=== PATIENT | female | born 1965 | race Caucasian/White ===

== ENCOUNTER 2017-10-25 11:45 | Inpatient (IN) | payer OTHER ==
[2017-11-01] MEDS ORDERED: cefOXitin SODIUM 2 GM in NS 100 ML IV ONE (06:51)
[2017-11-01] MEDS ORDERED: LR 1,000 ML IV ONE (07:34)
[2017-11-01] MEDS ORDERED: BUPIVACAINE/EPI 0.5% 30 ML SDV ONE (07:52)
[2017-11-01] MEDS ORDERED: MIDAZOLAM 2 MG/2 ML VIAL IVP ONE (07:59)
--- NOTE | 2017-11-01 07:59 | PDANEPAE ---
ANE Past Medical History - Cardiovascular History Hx Hypertension: Yes Hx Arrhythmias: No Hx Chest Pain: No Hx Coronary Artery / Peripheral Vascular Disease: No Hx CHF / Valvular Disease: No Hx Palpitations: No - Pulmonary History Hx COPD: No Hx Asthma/Reactive Airway Disease: Yes Hx Recent Upper Respiratory Infection: No Hx Oxygen in Use at Home: No Hx Sleep Apnea: No Sleep Apnea Screening Result - Last Documented: Positive Pulmonary History Comment: EXERCISE INDUCED ASTHMA - Neurologic History Hx Cerebrovascular Accident: No Hx Seizures: No Hx Dementia: No - Endocrine History Hx Diabetes: Yes Hypothyroid: No Hyperthyroid: No Obesity: yes, severe Endocrine History Comment: IDDDM SINCE 2004 - Renal History Hx Renal Disorders: No - Liver History Hx Hepatic Disorders: No - Neurological & Psychiatric Hx Hx Neurological and Psychiatric Disorders: No - Cancer History Hx Cancer: Yes Cancer History Comment: NEW DX LT KIDNEY 08/2017 - Congenital Disorder History Hx Congenital Disorders: No - GI History GERD: no Hx Gastrointestinal Disorders: Yes Gastrointestinal History Comment: DIVERTICULOSIS - Other Health History Other Health History: LT EUSTATCHIAN TUBE PLUGGING RELATED TO ALLERGIES - Chronic Pain History Chronic Pain: No - Surgical History Prior Surgeries: PARTIAL HYSTERECTOMY. LUMBAR FUSION. LT CARPAL TUNNEL. LT THUMB ARTHROPLASTY. REMVL BONE SPUR RT FOOT. LT WRIST BONE GRAFT ANE Review of Systems Review of Systems: - Exercise capacity METS (RN): 4 METS ANE Patient History - Allergies Allergies/Adverse Reactions: Sulfa (Sulfonamide Antibiotics) Allergy (Verified 11/01/17 07:11) Rash - Home Medications Home Medications: Albuterol [Proventil Inhaler HFA (*)] 1 - 2 puffs IH DAILY PRN 09/26/17 [Last Taken 10/18/17] Aspirin [Aspirin 81mg (*)] 81 mg PO HS 09/26/17 [Last Taken 10/25/17] Benazepril HCl 40 mg PO DAILY 09/26/17 [Last Taken 11/01/17 05:00] Calcium Carbonate [Oyster Shell Calcium 500 mg (*)] 500 mg PO DAILY 09/26/17 [ Last Taken 10/25/17] Cholecalciferol Vit D3 [Vitamin D3 (*)] 1,000 units PO DAILY 09/26/17 [Last Taken 10/25/17] Dapagliflozin Propanediol [Farxiga] 5 mg PO DAILY 09/26/17 [Last Taken 10/31/17 09:00] Estradiol [Estradiol 1 MG (*)] 1 mg PO DAILY 09/26/17 [Last Taken 11/01/17 05:00 ] Fexofenadine HCl [Tameka Allergy] 60 mg PO DAILY 09/26/17 [Last Taken 10/31/17 09:00] Fluticasone Nasal [Flonase Nasal [place] (RX)] 2 sprays NASAL DAILY 09/26/17 [ Last Taken 11/01/17 05:00] Hydrochlorothiazide [HCTZ (*)] 12.5 mg PO DAILY 09/26/17 [Last Taken 10/31/17 09 :00] Insulin Detemir [Levemir] 80 unit SQ BID 09/26/17 [Last Taken 11/01/17 05:00 60 units] Nebivolol HCl [Bystolic] 30 mg PO DAILY 09/26/17 [Last Taken 11/01/17 05:00] [place]-3 Fatty Acids [Fish Oil 1000 mg (*)] 1,000 mg PO DAILY 09/26/17 [Last Taken 10/25/17] Pravastatin Sodium 40 mg PO HS 09/26/17 [Last Taken 10/31/17 22:00] Sodium Cl Nasal [[place] (*)] 1 spray NS DAILY 09/26/17 [Last Taken 05:00] glipiZIDE [Glucotrol] 10 mg PO BID 09/26/17 [Last Taken 10/31/17 19:00] metFORMIN HCL [Glucophage 1000 mg] 1,000 mg PO BIDMEAL 09/26/17 [Last Taken 19:00] sitaGLIPtin PHOSPHATE [Januvia 100 MG (*)] 100 mg PO DAILY 09/26/17 [Last Taken 10/31/17 09:00] - NPO status NPO Since - Liquids (Date): 10/31/17 NPO Since - Liquids (Time): 23:00 NPO Since - Solids (Date): 10/31/17 NPO Since - Solids (Time): 10:00 - Smoking Hx Smoking Status: Never smoked Marijuana use: No - Alcohol Use Alcohol Use: Rarely - Family Anes Hx Family Anes Hx: neg - N/A ANE Labs/Vital Signs - Vital Signs Blood Pressure: 139/77 Heart Rate: 61 Respiratory Rate: 16 O2 Sat (%): 91 Height: 160.02 cm Weight: 101.151 kg ANE Physical Exam - Airway Neck exam: FROM Mallampati Score: Class 2 Mouth exam: normal dental/mouth exam - Pulmonary Pulmonary: no respiratory distress, no rales or rhonchi, clear to auscultation - Cardiovascular Cardiovascular: regular rate and rhythym, no murmur, rub, or gallop - ASA Status ASA Status: III ANE Anesthesia Plan Anesthesia Plan: general endotracheal anesthesia Total IV Anesthesia: No
[2017-11-01] MEDS ORDERED: MIDAZOLAM 2 MG/2 ML VIAL ONE (08:04)
[2017-11-01] MEDS ORDERED: SCOPOLAMINE HYDROBROMIDE 1 MG/3 DAYS PATCH TD ONE (08:04)
--- NOTE | 2017-11-01 08:08 | PDHPUP ---
History & Physical Update H&P update statement: This history and physical update is based on an assessment of the patient which was completed after admission or registration (within 24 hours), but prior to the surgery/procedure. H&P update: no change in patient's condition since H&P completed
[2017-11-01] MEDS ORDERED: REMIFENTANIL HCL 1 MG VIAL ONE ×2 (08:20→10:29)
[2017-11-01] MEDS ORDERED: fentaNYL 100 MCG/2 ML INJ ONE ×3 (08:20→15:30)
[2017-11-01] MEDS ORDERED: LIDOCAINE 2% 5 ML SDV ONE (08:21)
[2017-11-01] MEDS ORDERED: PROPOFOL/EMULSION 500 MG/50 ML BOTTLE IV ONE ×2 (08:21→10:30)
[2017-11-01] MEDS ORDERED: PROPOFOL 200 MG/20 ML VIAL ONE (08:21)
[2017-11-01] MEDS ORDERED: ONDANSETRON 4 MG/2 ML VIAL ONE (08:22)
[2017-11-01] MEDS ORDERED: ROCURONIUM 50 MG/5 ML VIAL ONE ×3 (08:23→12:46)
[2017-11-01] MEDS ORDERED: DEXAMETHASONE 4 MG/ML VIAL ONE (08:23)
[2017-11-01] MEDS: SCOPOLAMINE HYDROBROMIDE 1 MG/3 DAYS PATCH TD SCH (09:15)
[2017-11-01] MEDS ORDERED: fentaNYL 100 MCG/2 ML INJ IVP PRN (09:39)
[2017-11-01] MEDS ORDERED: MEPERIDINE 25 MG/0.5 ML AMP IVP PRN (09:39)
[2017-11-01] MEDS ORDERED: LR 500 ML IV PRN (09:39)
[2017-11-01] MEDS ORDERED: ACETAMINOPHEN 500 MG TAB PO PRN (09:39)
[2017-11-01] MEDS ORDERED: oxyCODONE IR 5 MG TAB PO PRN (09:39)
[2017-11-01] MEDS ORDERED: HYDROmorphONE/DILAUDID 1 MG/ML INJ IVP PRN (09:39)
[2017-11-01] MEDS ORDERED: ALBUTEROL 3 ML DEYVIAL IH PRN (09:39)
[2017-11-01] MEDS ORDERED: NALOXONE HCL 0.4 MG/ML INJ IVP PRN ×2 (09:39→14:16)
[2017-11-01] MEDS ORDERED: PHENYLEPHRINE HCL 100 MCG/ML SYR IVP PRN (09:39)
[2017-11-01] MEDS ORDERED: ONDANSETRON 4 MG/2 ML VIAL IVP PRN ×2 (09:39→14:16)
[2017-11-01] MEDS ORDERED: HYDROCODONE/APAP 5/325 TAB PO PRN (09:39)
[2017-11-01] MEDS ORDERED: PROMETHAZINE HCL 25 MG/ML INJ IVP PRN ×2 (09:39→14:16)
[2017-11-01] MEDS ORDERED: THROMBIN(HUM PLAS)/FIBRINOG/CA 5 ML VIAL TP ONE ×3 (10:22→11:30)
[2017-11-01] MEDS ORDERED: PHENYLEPHRINE HCL 100 MCG/ML SYR ONE ×2 (12:05→12:54)
[2017-11-01] MEDS ORDERED: CALCIUM CHLORIDE 1 GM/10 ML INJ ONE (12:46)
[2017-11-01] MEDS ORDERED: NEOSTIGMINE METHYLSULFATE 10 MG/10 ML MDV ONE (13:29)
[2017-11-01] MEDS ORDERED: SUGAMMADEX SODIUM 200 MG/2 ML VIAL IVP ONE (13:30)
--- NOTE | 2017-11-01 14:14 | POSTOPPROG ---
Post Op Note Date of Operation: 11/02/17 Surgeon: Nic Winslow (# [id number]) Internet Specialist: Jessica Parham Anesthesia: GET(General Endotracheal) Pre-op Diagnosis: Left renal mass Post-op Diagnosis: Left renal mass Procedure: Robotically assisted left partial nephrectomy, converted to radical Findings: See op note Inf/Abcess present in the surg proc area at time of surgery?: No EBL: 500-1000 (1000 cc) Complications: None Specimen(s): 1. Lateral margin of tumor resection 2. Left renal tumor 3. Left kidney and proximal ureter
[2017-11-01] MEDS ORDERED: ALBUTEROL 60 PUFFS/8 GM MDI IH PRN (14:17)
[2017-11-01] MEDS ORDERED: D50W 25 GM/50 ML SYR IVP PRN (14:18)
--- NOTE | 2017-11-01 14:26 | POSTANESTH ---
Post Anesthetic Evaluation Cardiovascular Status: Normal, Stable Respiratory Status: Normal, Stable Level of Consciousness/Mental Status: Mildly Sleepy, Arousable Pain Control: Adequate, Prn Tx Ordered Nausea/Vomiting Control: Adequate, Prn Tx Ordered Complications Possibly Related to Anesthesia: None Noted
[2017-11-01] MEDS ORDERED: INSULIN REGULAR HUMAN 100 UNIT/ML UNIT SC ONE (14:30)
[2017-11-01] MEDS ORDERED: INSULIN REGULAR HUMAN 100 UNIT/ML UNIT ONE (14:39)
--- NOTE | 2017-11-01 16:45 | PDMN ---
Medical Necessity Medical necessity: MCG; S850 nephrectomy 3 days: [facility]PT only L radical Nephrectomy
[2017-11-01] MEDS: cefOXitin SODIUM 2 GM in NS 100 ML IV SCH ×2 (16:52→20:35)
[2017-11-01] MEDS: NS 1,000 ML IV SCH (16:56)
[2017-11-01] MEDS: HYDROmorphONE/DILAUDID 6 MG/30 ML PCA IV PRN (16:59)
[2017-11-01] MEDS ORDERED: INSULIN REGULAR HUMAN 100 UNIT/ML UNIT SC SCH (17:30)
[2017-11-01] MEDS ORDERED: KETOROLAC 15 MG/1 ML SDV IVP PRN (17:43)
[2017-11-01] MEDS ORDERED: KETOROLAC 30 MG/1 ML SDV IVP ONE (17:45)
[2017-11-02] MEDS: KETOROLAC 15 MG/1 ML SDV IVP SCH ×4 (04:16→20:53)
[2017-11-02] MEDS: cefOXitin SODIUM 2 GM in NS 100 ML IV SCH ×2 (04:18→14:58)
[2017-11-02] MEDS ORDERED: NEBIVOLOL HCL 5 MG TAB PO SCH (09:00)
[2017-11-02] MEDS ORDERED: HYDROCHLOROTHIAZIDE 12.5 MG CAP PO SCH (09:00)
[2017-11-02] MEDS ORDERED: BENAZEPRIL HCL 20 MG TAB PO SCH (09:00)
[2017-11-02] MEDS: CETIRIZINE 10 MG TAB PO SCH (09:16)
[2017-11-02] MEDS: SODIUM CL NASAL 45 ML BTL NS SCH (09:17)
[2017-11-02] MEDS: HYDROmorphONE/DILAUDID 6 MG/30 ML PCA IV PRN (09:46)
[2017-11-02] MEDS: FLUTICASONE NASAL 120 SPRAYS/16 GM MDI EACHNARE SCH (10:34)
--- NOTE | 2017-11-02 11:20 | GOP ---
[f rep st] OPERATIVE REPORT DATE OF OPERATION: 11/01/2017 SURGEON: Nic Winslow MD RACE RELATIONS ADVISER: Jessica Parham CFA. ANESTHESIA: General endotracheal. PREOPERATIVE DIAGNOSIS: Abnormal left renal mass. POSTOPERATIVE DIAGNOSIS: Abnormal left renal mass. PROCEDURE PERFORMED: Robotically-assisted laparoscopic left partial nephrectomy, converted to radica l nephrectomy. FINDINGS: Abnormal minimally exophytic left renal tumor located along the medial aspect of the mid p ole posteriorly, measuring approximately 3 cm in diameter. ESTIMATED BLOOD LOSS: Approximately 1000 cc. INDICATIONS: This woman was found to have an abnormal solid enhancing renal mass. She presents for operative management at this time. The indications for the procedures as well as potential risks and complications were discussed with the patient preoperatively. She appeared to understand, her quest ions were answered, and she wished to proceed. Written informed surgical consent was thereafter obta ined. DESCRIPTION OF PROCEDURE: The patient was brought to the operating room and administered general end otracheal anesthesia. Orogastric tube was also placed by Anesthesia and removed at the conclusion of the case. The patient was placed in a slight left flank up position with a triangular pad placed be hind her back. She was placed over the break of the table and the table was flexed approximately 15 degrees. The right leg was flexed at the knee, and the left leg was kept straight over it with rubens ws in between for padding purposes. The patient's right arm was kept abducted less than 90 degrees o n an arm board, while the left arm was kept straight along the patient's left side in a foam trough. All appropriate pressure points were padded. The patient was then secured to the table securely wit h several strips of tape running from head to toe. Because the patient has a large abdominal pannus, a pad was placed on the right side of the table to help support it when the patient was in the left flank up position. Once the patient had been secured to the table, the airplane was then tilted back and forth in maximum positions to ensure stability on the table and this was confirmed. The patient was then placed in slight Trendelenburg position and the table was tilted so the abdomen was as flat as possible for prepping and initial port placement. It should also be mentioned that prior to posi tioning, and after the patient was placed under anesthesia, a 16-[place] Connor catheter was placed to bag drainage without complication. The abdomen was sterilely prepped and draped in standard fashion utilizing Ioban. Access to the intraabdominal cavity was obtained with an extra long Veress needle just to the left of midline and about alf between the xiphoid process and the umbilicus. All the ports were shifted more laterally to the left than normal to account for the patient's large pannus. Once intraabdomin al access was obtained, the abdomen was insufflated 15 mmHg which was the intraabdominal pressure uti lized throughout the majority of the case. An extra long 12 mm laparoscopic port was placed at this location and intraabdominal access was confirmed with the laparoscopic camera. The remaining port si melody were marked out as follows: An 8 mm robotic port placed in the left upper quadrant just below e costal margin and nearly in the midclavicular line, another 8 mm robotic port placed in the lower a spect of the left lower quadrant, nearly in the same longitudinal line as the other 8 mm robotic port , and a 12 mm system port placed in the upper aspect of the left upper quadrant, again laterally shif humza from normal position to the patient's large pannus. [facility] All the ports were placed under direct vision without complication. Examination of the abdo men before beginning the robotic portion of the procedure revealed numerous adhesions between the ome ntum and the left upper quadrant, anterior abdominal wall and lateral abdominal wall. I felt that th wilton could the released robotically. The robot was then docked perpendicular to the patient's back wi th the center post of the robot kept nearly in the same longitudinal line as the laparoscopic port to be used for the camera. All the robotic arms were secured to the appropriate ports. I then left th e patient's bedside and entered the robotic surgeon's console. I began the robotic portion of the procedure by dissecting and mobilizing all of the adhesions betwee n the omentum and the anterior and left lateral abdominal brown. This plane was then carefully mobil ized by incising ligaments attaching it to the left lateral abdominal wall. The left colon was then reflected medially across the midline by developing the plane between the colon and the underlying Ge rota's fascia. It should be mentioned that there was an extensive amount of retroperitoneal fat in t his patient that made the operation technically more difficult. After mobilizing the colon medially, I was ultimately able to identify the location of the position of the renal vein. There was a sizab le lumbar vein emanating off the inferior aspect of the renal vein and this was left unharmed. The g onadal vein was identified and it was ultimately sacrificed between Hemolock clips and divided with s cissors. I then continued my dissection caudal to the kidney and was ultimately able to identify the location of the ureter. I then continued my dissection posterior to the ureter until the psoas fascia was misbah ntified. All the periureteral and perinephric tissue sitting above the psoas fascia was then mobiliz ed anteriorly. This tissue was retracted anteriorly in order to allow me to continue my dissection a long the aorta and the tissue medially lateral to it on the left side. I then continued my dissectio n cephalad from here until I was able to reach the renal hilum. Tedious dissection of the renal hilu m was then performed. There were numerous branches off the primary renal vein that were extremely sm all. Some of these were ligated carefully with bipolar cautery in order to minimize avulsion. There was 1 dominant renal artery identified and it was sitting along the superior edge of the renal vein and deep to it. I was ultimately able to dissect it free carefully to allow for placement of bulldog vascular clamps. At this point, I then dissected the fat off the renal capsule circumferentially in order to be able t o identify the abnormal renal mass. Based on preoperative CT imaging, the mass was noted to be along the midportion of the kidney along the posterior aspect and sitting quite medially, close to the jf al hilum. I then incised through the dartos fascia and then dissected the perinephric fat off the ki dney carefully while taking care not to violate the renal capsule. This dissection of the fat was pe rformed circumferentially. I was ultimately able to identify the tumor, which was minimally exophyti c, along the posterior aspect of the kidney along the mid plane of the kidney longitudinally extendin g medial to that toward the renal hilum. The tumor was emanating off the mid pole. I attempted to s trip all the fat off the kidney in order to allow the posterior aspect of the kidney to be flipped an teriorly so that the tumor could be more easily dissected. This was based on the location of the edwin or, both posteriorly and medially close to the renal hilum, this was going to be a technically diffic ult partial nephrectomy to complete. Nonetheless, I decided to proceed with the partial nephrectomy in mind at this point. Intraoperative renal sonography was then used to delineate the mass and confirm that the suspected ma ss was indeed the solid abnormal mass. This was confirmed sonographically. I then used the ultrasou nd to markell my circumferential dissection margin by scoring the renal capsule circumferentially around the mass with the monopolar scissors. A suitable circumferential margin of normal tissue surroundin g the mass was also considered while scoring the renal capsule in this fashion. Once this was comple humza, I turned the kidney back over in neutral position for placement of the vascular clamps. The vascular bulldog clamps were then placed across the renal artery, then the renal vein. The cross -clamp time was noted to be 1124. The kidney was then flipped over in order to expose the abnormal r enal mass as well as possible. It should be mentioned that before beginning this dissection, I switc hed from the 0 degree 12 mm robotic camera to the 30 degree down 12 mm camera for better visualizatio n of the tumor and surrounding renal tissue. I then excised the mass carefully with monopolar scisso rs dissection, starting along the lateral aspect of the mass and continuing inferiorly, superiorly, a nd medially. Care was taken to ensure that the depth of resection was adequate in order to open to m inimize the risk of positive margins. This dissection went well with good visualization throughout t his portion of the procedure. Once the tumor was excised, there was a small portion of tissue along the lateral margin of the resection (which was actually along the medial aspect of the dissection), w hich was excised separately at the depth of the resection and sent as a lateral margin of resection. As I was dissecting the depth of the mass, it appeared to come very close to the collecting system. In fact, I suspected that I did enter the collecting system with resection and removal of the mass. This was somewhat concerning as to whether I should continue with the partial nephrectomy as a resul t of this finding alone. Nonetheless, I decided to continue with the thought that a partial nephrect joseline would be completed. I used a 3-0 Vicryl V-loc running suture to close the collecting system in t he deeper vasculature within the resection bed. I then used an 0-Vicryl suture on a CT-1 needle to p erform a sliding clip renorrhaphy closure of the capsule and the renal parenchyma in it's exact fashi on. Multiple Hemolock clips were utilized to perform this closure. Once the closure was deemed to b e visually adequate, I then decided to remove the vascular clamps. The kidney was flipped back over in neutral position and the vascular bulldog clamps were removed. The clamp off time was noted to be 12 o'clock for a total warm ischemia time of 36 minutes. Immediately upon removing the clamps, ther e was a slow but continuous oozing of arterial blood from the posterior medial aspect of the resectio n. Attempts to visualize the exact location were difficult due to the location of the bleeding. I w as concerned that I might have cut into the primary hilum of the kidney, either arterial or venous, i n order to sufficiently remove the tumor and this was the potential source of bleeding. In fact, whi carmen looking at the kidney in a neutral position along the hilum, there did appear to be some bleeding from a couple of small tributaries from the renal vein as well. I attempted to secure vascular contr ol of the bleeding as much as possible, but this proved to be very difficult. The bleeding continued in a fairly gradual continuous fashion. The patient did receive 1 unit of packed red blood cells ab out this time, as given by Anesthesia, due to transient hypotension. At this point, I was concerned that I would not be able to obtain adequate hemostatic control through my current approach. This kerry nt that I would need to either convert to an open nephrectomy, or open operation, or convert to a rad ical nephrectomy. After giving consideration all the options, I decided to proceed with a radical ne phrectomy. I felt this would be best for the patient in light of the depth of resection and concerns that I would not be able to obtain hemostatic control of the remaining portion of the kidney and yet maintain significant viability of the remaining portion of the renal unit. As a result, the 60 mm linear vascular stapler was brought on the field and used to ligate the renal hilum by incorporating the renal vein and artery together. I then continued my dissection superiorly and medially. A portion of the adrenal gland was taken with the kidney and ligated with the linear vascular stapler. I continued dissection anteriorly and superiorly, along the margin of the splenore nal ligaments. These were ligated with the linear vascular stapler as well. Care was taken to ensur e that the previously dissected perinephric fat was kept with the specimen and removed with the entir e kidney. The perinephric fat was then freed from the attachments along the left lateral abdominal w all with monopolar scissors dissection and bipolar cautery as necessary. The ureter was ligated with the linear vascular stapler caudal to the kidney. The kidney was then completely free at this point and placed in the pelvis to be later retrieved in a specimen bag. The renal fossa was then carefully inspected. There was some slight bleeding noted from the cut surf evelyn of the adrenal gland. This was ligated successfully with an 0-Vicryl suture stick tie. I then u sed a total of 10 cc of Evicel and placed it along the transected renal hilum as well as the cut surf evelyn of the adrenal gland. Hemostasis was excellent at this point, even with the intraabdominal press ure decreased to 5 mmHg. The spleen was noted to be unharmed. No injury to the bowel was appreciate d. I then captured the kidney, along with the resected tumor, as well as the associated perirenal fat, w ithin a 15 mm specimen bag through the teaching assistant port. Before being able to insert this bag, the 12 mm system port was exchanged for a 15 mm port. Once this was done, the robotic portion of procedure was complete. I then returned to the patient's bedside. An 0-Vicryl suture with the fascial closure device was the n used to reapproximate the rectus fascia at the location of the 12 mm camera port. This completed t he laparoscopic portion of the procedure. The teaching assistant port site was then extended in a longitudina l fashion, initially at the level of the skin with a scalpel and continued along the depth of the inc ision into the intraabdominal cavity with electrocautery. I was ultimately able to deliver the speci men bag through this incision. The entire kidney, along with the resected tumor, were confirmed to b e within the bag. This extended incision was closed by first reapproximating the rectus fascia with running 0-Vicryl suture. The subcutaneous tissue was thoroughly cauterized and irrigated before reap proximating Chris's fascia with a running 3-0 Vicryl suture. All the skin incisions were then reapp roximated with a running 4-0 Monocryl suture in a subcuticular fashion, followed by the application o f Dermabond. The patient was then awakened, extubated, transferred to her bed, then taken to the rec overy room. COMPLICATIONS: Significant bleeding noted from the kidney following excision of the tumor, which cou ld not be safely controlled, thereby resulting in conversion to radical nephrectomy. DISPOSITION: She was transferred to the recovery room in stable condition and will be admitted for p ostoperative care. /[id number]/MODL
--- NOTE | 2017-11-02 11:36 | SOAPPROG ---
SOAP Progress Note Assessment/Plan: Assessment: 1. POD 1 s/p robotic left radical nephrectomy - stable. Reviewed with her rationale for performing radical over partial nephrectomy. 2. Back spasms. Plan: 1. Ambulate. 2. Continue CRYSTAL EVALUATOR until she has more substantial oral intake. 3. Robaxin for back spasms. 4. Have recommended she see sausage stuffer after discharge to obtain better DM control. This has been an issue prior to surgery. Continue insulin SS for now , then resume regular oral and injectable medications once she is eating. Subjective: Biggest complaint is upper back spasms -- she has had issues w/ lower back spasms in the past that have responded favorably to Robaxin. Mild transient nausea earlier today. Objective: Vital Signs Temp Pulse Resp BP Pulse Ox 36.8 C 87 16 107/58 L 94 11/02/17 10:06 11/02/17 10:06 11/02/17 10:06 11/02/17 10:06 11/02/17 10:06 Laboratory Results 11/02/17 04:08 11/02/17 04:08 11/01/17 11/02/17 11/03/17 05:59 05:59 05:59 Intake Total 6150 Output Total 2350 Balance 3800 Physical Exam - Physical Exam General Appearance: alert, no apparent distress, obese Abdomen: soft, distended (mildly), other (incisions c/d/i) Skin: normal color, warm/dry Extremities: non-tender, normal inspection Neuro/Psych: alert, normal mood/affect, oriented x 3 ICD10 Worksheet Patient Problems: Problems Problem Status Onset Renal neoplasm Acute - ICD10 Problem Qualifiers (1) Renal neoplasm
[2017-11-02] MEDS: METHOCARBAMOL 750 MG TAB PO SCH ×3 (12:55→20:53)
--- NOTE | 2017-11-02 15:27 | ASMTCMCOM ---
CM Note CM Note Notes: CM reviewed chart for D/C planning. Pt is a 52 y/o female who was hospitalized following surgery where she had a left partial nephrectomy converted to radical. Pt has a h/o diabetes and HPT. Pt lives with her , Braden #[phone]. CM will follow. D/C Plan: TBD Date Signed: 11/02/2017 03:27 PM Electronically Signed By:Norma Bowen
--- NOTE | 2017-11-02 15:38 | ASMTCMCOM ---
CM Note CM Note Notes: CM reviewed Pt's chart for D/C planning. Pt appears to be improving. She has relayed to staff that she does not want to go to a SNF and does want to return home. CM will follow. D/C Plan: Probablly home with support services. Date Signed: 11/02/2017 03:38 PM Electronically Signed By:Norma Bowen
[2017-11-02] MEDS ORDERED: D50W 25 GM/50 ML SYR IVP PRN (17:44)
[2017-11-02] MEDS: NS 1,000 ML IV SCH (18:40)
[2017-11-02] MEDS: INSULIN REGULAR HUMAN 100 UNIT/ML UNIT SC SCH (21:05)
[2017-11-03] MEDS: NS 1,000 ML IV SCH ×2 (02:52→17:37)
[2017-11-03] MEDS: KETOROLAC 15 MG/1 ML SDV IVP SCH (04:50)
[2017-11-03] MEDS: FLUTICASONE NASAL 120 SPRAYS/16 GM MDI EACHNARE SCH (08:43)
[2017-11-03] MEDS: METHOCARBAMOL 750 MG TAB PO SCH ×3 (08:44→21:20)
[2017-11-03] MEDS: CETIRIZINE 10 MG TAB PO SCH (08:44)
[2017-11-03] MEDS: INSULIN REGULAR HUMAN 100 UNIT/ML UNIT SC SCH ×4 (08:44→21:20)
[2017-11-03] MEDS: SODIUM CL NASAL 45 ML BTL NS SCH (08:46)
--- NOTE | 2017-11-03 13:29 | SOAPPROG ---
SOAP Progress Note Assessment/Plan: Assessment: Renal neoplasm Acute POD #2 mild rise in creat yet could be to low volume, give 1 liter of NS over 4 hours, path pending Plan: continue care 11/03/17 13:37 Subjective: stable Objective: Vital Signs Temp Pulse Resp BP Pulse Ox 37 C 88 18 122/67 H 97 11/03/17 11:52 11/03/17 11:52 11/03/17 11:52 11/03/17 11:52 11/03/17 11:52 Laboratory Results 11/03/17 04:10 11/03/17 04:10 11/02/17 11/03/17 11/04/17 05:59 05:59 05:59 Intake Total 6150 2884 350 Output Total 2350 525 Balance 3800 2359 350 Physical Exam - Physical Exam General Appearance: alert Neck: supple Respiratory: No respiratory distress Cardiac/Chest: regular rate, rhythm Abdomen: soft Back: No CVA tenderness Extremities: No calf tenderness, No Saul's sign Neuro/Psych: alert, oriented x 3 ICD10 Worksheet Patient Problems: Problems Problem Status Onset Renal neoplasm Acute
[2017-11-03] MEDS ORDERED: NS 1,000 ML IV ONE (13:30)
[2017-11-04] MEDS: NS 1,000 ML IV SCH (02:04)
[2017-11-04] MEDS: METHOCARBAMOL 750 MG TAB PO SCH ×3 (09:21→21:43)
[2017-11-04] MEDS: INSULIN REGULAR HUMAN 100 UNIT/ML UNIT SC SCH ×4 (09:22→21:40)
[2017-11-04] MEDS: CETIRIZINE 10 MG TAB PO SCH (09:22)
[2017-11-04] MEDS: SODIUM CL NASAL 45 ML BTL NS SCH (09:23)
[2017-11-04] MEDS: SCOPOLAMINE HYDROBROMIDE 1 MG/3 DAYS PATCH TD SCH (09:23)
[2017-11-04] MEDS: FLUTICASONE NASAL 120 SPRAYS/16 GM MDI EACHNARE SCH (09:23)
[2017-11-04] MEDS ORDERED: PATCH REMOVAL 1 EA PATCH TD SCH (09:37)
[2017-11-04] MEDS: HYDROCODONE/APAP 10/325 TAB PO PRN ×2 (11:08→18:15)
--- NOTE | 2017-11-04 12:20 | SOAPPROG ---
SOAP Progress Note Assessment/Plan: Assessment: Renal neoplasm Acute POD #3 anemia noted post op and stable, path pending Plan: continue care 11/04/17 12:19 Subjective: improving Objective: Vital Signs Temp Pulse Resp BP Pulse Ox 36.9 C 79 16 123/71 H 93 11/04/17 12:17 11/04/17 12:17 11/04/17 12:17 11/04/17 12:17 11/04/17 12:17 Laboratory Results 11/04/17 04:12 11/04/17 04:12 11/03/17 11/04/17 11/05/17 05:59 05:59 05:59 Intake Total 2884 2502 Output Total 525 1700 500 Balance 2359 802 -500 Physical Exam - Physical Exam General Appearance: alert Neck: normal inspection Respiratory: No respiratory distress Cardiac/Chest: regular rate, rhythm Abdomen: soft Back: No CVA tenderness Neuro/Psych: alert, oriented x 3 ICD10 Worksheet Patient Problems: Problems Problem Status Onset Renal neoplasm Acute
[2017-11-04] MEDS ORDERED: HYDROmorphONE/DILAUDID 1 MG/ML INJ IVP PRN (13:49)
[2017-11-04] MEDS: metFORMIN HCL 500 MG TAB PO SCH (18:50)
[2017-11-04] MEDS ORDERED: PRAVASTATIN SODIUM 40 MG TAB PO SCH (21:00)
[2017-11-04] MEDS ORDERED: ASPIRIN 81 MG CHEWABLE TAB PO SCH (21:00)
[2017-11-04] MEDS: glipiZIDE 10 MG TAB PO SCH (21:27)
[2017-11-04] MEDS: INSULIN GLARGINE 100 UNITS/ML UNIT SC SCH (21:40)
[2017-11-05] MEDS: HYDROCODONE/APAP 10/325 TAB PO PRN ×3 (00:34→17:45)
[2017-11-05] MEDS: METHOCARBAMOL 750 MG TAB PO SCH ×2 (08:55→17:46)
[2017-11-05] MEDS: INSULIN REGULAR HUMAN 100 UNIT/ML UNIT SC SCH ×3 (08:56→17:46)
[2017-11-05] MEDS ORDERED: Dapagliflozin Propanediol [Farxiga] 5 MG PO SCH (09:00)
[2017-11-05] MEDS ORDERED: ESTRADIOL 1 MG TAB PO SCH (09:00)
[2017-11-05] MEDS: FLUTICASONE NASAL 120 SPRAYS/16 GM MDI EACHNARE SCH (09:02)
[2017-11-05] MEDS: SODIUM CL NASAL 45 ML BTL NS SCH (09:02)
[2017-11-05] MEDS: CETIRIZINE 10 MG TAB PO SCH (09:04)
[2017-11-05] MEDS: glipiZIDE 10 MG TAB PO SCH (09:04)
[2017-11-05] MEDS: INSULIN GLARGINE 100 UNITS/ML UNIT SC SCH (09:05)
[2017-11-05] MEDS: metFORMIN HCL 500 MG TAB PO SCH ×2 (09:05→17:46)
--- NOTE | 2017-11-05 15:57 | ASMTCMCOM ---
CM Note CM Note Notes: Chart reviewed. Met with patient who will likely have no needs other than home oxygen. No PT or PT ordered. Up about independently in room. CM available should needs arise. Plan: Home with family support. May need home oxygen. Date Signed: 11/05/2017 03:57 PM Electronically Signed By:Mamta Mendez RN
--- NOTE | 2017-11-05 16:13 | SOAPPROG ---
SOAP Progress Note Assessment/Plan: Assessment: 1. POD 4 s/p robotic left radical nephrectomy - stable. 2. Back spasms: resolved. 3. Anemia - stable. Transfusion not indicated. 4. Postop hypoxia -- likely due to atelectasis and peripheral edema. She will probably need home O2. Plan: 1. Discharge w/ home O2. RT to assess prior to discharge. 2. FU w/ me in 3 weeks. 3. I have recommended she see [facility] after discharge to obtain better DM control. Continue her preadmit DM medication regimen in the meantime. (d/c summ. # [id number]). 11/05/17 18:02 Objective: Vital Signs Temp Pulse Resp BP Pulse Ox 37.1 C 96 16 165/86 H 92 11/05/17 12:00 11/05/17 12:00 11/05/17 12:00 11/05/17 12:00 11/05/17 12:00 Laboratory Results 11/05/17 04:06 11/05/17 04:06 11/04/17 11/05/17 11/06/17 05:59 05:59 05:59 Intake Total 2502 2800 500 Output Total 1700 1900 800 Balance 802 900 -300 Physical Exam - Physical Exam General Appearance: alert, no apparent distress, obese Abdomen: non-tender, soft, distended, other (incisions c/d/i) Skin: normal color, warm/dry Extremities: non-tender, other (1-2+ edema below the knees bilaterally) Neuro/Psych: alert, normal mood/affect, oriented x 3 ICD10 Worksheet Patient Problems: Problems Problem Status Onset Renal neoplasm Acute - ICD10 Problem Qualifiers (1) Renal neoplasm
--- NOTE | 2017-11-05 16:14 | PDHOMEO2F ---
Home Oxygen Face to Face Home Orders: I certify that a physician or a nurse practitioner or physician's casino assistant manager has had a [id number]-evok encounter with this patient on the date of this order due to the diagnosis listed, which relates to the primary reason the patient requires home oxygen. Alternative treatments have been tried, or considered, and deemed ineffective. It is anticipated that supplemental oxygen will result in improvement with treatment. Home oxygen qualifying diagnosis: Atelectasis Home oxygen secondary diagnosis: Peripheral edema SpO2 on room air (%): 86 Frequency of home oxygen needed: continuous Home oxygen liters per minute: 2 Home oxygen delivery device: nasal cannula Concentrator: Yes E-tanks for mobility and back up: Yes If ordering portable O2, is the patient mobile in the home?: Yes I certify that, based on these findings, the home oxygen is medically necessary for this patient for the following length of time. Length of time home oxygen needed: 3 months
[2017-11-05 17:10] VITALS: BP 157/94
--- NOTE | 2017-11-05 18:30 | GDS ---
[f rep st] DISCHARGE SUMMARY ADMITTING DIAGNOSIS: Abnormal left renal mass. DISCHARGE DIAGNOSES: 1. Abnormal left renal mass. 2. Hypoxia due to atelectasis and peripheral edema. PROCEDURES: Robotically-assisted laparoscopic left radical nephrectomy on 11/01/2017. HOSPITAL COURSE: Refer to the operative report for details regarding the surgery. Postoperatively, the patient recovered relatively unremarkably. She was ambulating by postoperative day 2 (up in a ch air by postoperative day 1). She was started on a clear liquid diet on postoperative day 2, and this was advanced to a regular diet thereafter without complication. Her vital signs were stable, and kat jain was afebrile postoperatively. She did have postoperative hypoxia with oxygen saturations running a pproximately 86% on room air on postoperative day 4. She did have some peripheral and truncal edema, which is presumably due to administration of IV fluids intraoperatively and postoperatively. Her in cisions were clean, dry, and intact postoperatively. Her pain was controlled well on oral narcotics that were started on postoperative day 3. Her glucose checks were somewhat high initially, but then did decrease after initiating regular insulin sliding scale. Once she was tolerating regular food, she was then switched to her pre-admission diabetic medication regimen. She did have some back spasms postoperatively over the 1st couple days, which resolved nice ly with oral Robaxin b.i.d. She did have some anemia postoperatively, which was stable by postoperat chaz days 3 and 4 and did not require transfusion. Her postoperative chemistry panel was stable, slig ht increase in creatinine up to 1.1 by postoperative day 3. She was deemed ready for discharge on po stop day 4 on 2 L oxygen via nasal cannula. She has been assessed by Respiratory Therapy for this. She has been given activity restriction instructions. She will be discharged on her regular medications as well as [place] p.r.n. pain. She has been instruc humza to return to my office in approximately 3 weeks. I have also recommended she make an appointment to see [facility] to obtain a 2nd opinion regarding management of her diabetes, particula rly now that she only has 1 kidney. Pathology results are pending at the time of discharge. Copy requested to: Zarina Merchant [place], [place] /[id number]/JOSE DANIEL
== END 2017-11-05 20:52 | disposition home or self-care (01) | DRG 657 ==
LOC: F1N 11-01 06:41
PROVIDERS: ADMIT Specialist; ATTEND Specialist
PROC: 0TT14ZZ Resection of Left Kidney, Percutaneous Endoscopic Approach (ICD-10-PCS; principal; 2017-11-01 08:15)
DX: D41.02 Neoplasm of uncertain behavior of left kidney (principal); J95.89 Other postprocedural complications and disorders of respiratory system, not elsewhere classified; J98.11 Atelectasis; D64.9 Anemia, unspecified; R09.02 Hypoxemia; R60.9 Edema, unspecified; E11.9 Type 2 diabetes mellitus without complications; M62.830 Muscle spasm of back; Z98.1 Arthrodesis status
CPT/HCPCS: J0694; J1100; J1170; J1815; J1885; J2250; J2370; J2405; J2550; J2704; J3010; P9016

== ENCOUNTER 2018-01-17 09:22 | Inpatient (IN) | payer OTHER ==
[2018-01-17] MEDS ORDERED: LR 1,000 ML IV ONE (09:40)
[2018-01-17] MEDS ORDERED: MIDAZOLAM 2 MG/2 ML VIAL ONE (10:33)
[2018-01-17] MEDS ORDERED: SCOPOLAMINE HYDROBROMIDE 1 MG/3 DAYS PATCH TD ONE (10:33)
[2018-01-17] MEDS ORDERED: BUPIVACAINE 0.5% 30 ML SDV ONE (10:34)
[2018-01-17] MEDS ORDERED: fentaNYL 100 MCG/2 ML INJ ONE ×2 (10:40→14:01)
[2018-01-17] MEDS ORDERED: PROPOFOL/EMULSION 500 MG/50 ML BOTTLE IV ONE (10:40)
[2018-01-17] MEDS ORDERED: ONDANSETRON 4 MG/2 ML VIAL ONE (10:45)
[2018-01-17] MEDS ORDERED: RANITIDINE 50 MG/2 ML VIAL ONE (10:45)
[2018-01-17] MEDS ORDERED: LIDOCAINE 2% 2 ML INJ ONE (10:45)
[2018-01-17] MEDS ORDERED: BUPIVACAINE 0.25% 30 ML SDV ONE (10:46)
--- NOTE | 2018-01-17 10:50 | POSTOPPROG ---
Post Op Note Date of Operation: 01/17/18 Surgeon: Nic Winslow (# [id number]) Anesthesia: GET(General Endotracheal) Pre-op Diagnosis: Large left retroperitoneal hematoma Post-op Diagnosis: Large left retroperitoneal hematoma Procedure: Lap. evacuation of hematoma Findings: See op note Inf/Abcess present in the surg proc area at time of surgery?: No Specimen(s): Retroperitoneal hematoma contents
[2018-01-17] MEDS ORDERED: ALBUTEROL 3 ML DEYVIAL IH PRN (12:01)
[2018-01-17] MEDS ORDERED: METOCLOPRAMIDE 10 MG/2 ML VIAL IVP PRN (12:01)
[2018-01-17] MEDS ORDERED: NALOXONE HCL 0.4 MG/ML INJ IVP PRN ×3 (12:01→13:47)
[2018-01-17] MEDS ORDERED: DIAZEPAM 5 MG/ML 1 ML SYR IVP PRN (12:01)
[2018-01-17] MEDS ORDERED: fentaNYL 100 MCG/2 ML INJ IVP PRN (12:01)
[2018-01-17] MEDS ORDERED: PROMETHAZINE HCL 25 MG/ML INJ IVP PRN (12:01)
[2018-01-17] MEDS ORDERED: MEPERIDINE 25 MG/0.5 ML AMP IVP PRN (12:01)
[2018-01-17] MEDS ORDERED: ONDANSETRON 4 MG/2 ML VIAL IVP PRN (12:01)
[2018-01-17] MEDS ORDERED: LR 500 ML IV PRN (12:01)
--- NOTE | 2018-01-17 12:01 | PDANEPAE ---
ANE Past Medical History - Cardiovascular History Hx Hypertension: Yes Hx Arrhythmias: No Hx Chest Pain: No Hx Coronary Artery / Peripheral Vascular Disease: No Hx CHF / Valvular Disease: No Hx Palpitations: No - Pulmonary History Hx COPD: No Hx Asthma/Reactive Airway Disease: Yes Hx Recent Upper Respiratory Infection: No Hx Oxygen in Use at Home: No Hx Sleep Apnea: No Sleep Apnea Screening Result - Last Documented: Positive Pulmonary History Comment: EXERCISE INDUCED ASTHMA - Neurologic History Hx Cerebrovascular Accident: No Hx Seizures: No Hx Dementia: No - Endocrine History Hx Diabetes: Yes Endocrine History Comment: IDDDM SINCE 2004. INSULIN AND ORAL CONTROLLED - Renal History Hx Renal Disorders: No Renal History Comment: LEFT NEPHRECTOMY DUE TO RENAL CA 10/2017 - Liver History Hx Hepatic Disorders: No - Neurological & Psychiatric Hx Hx Neurological and Psychiatric Disorders: No - Cancer History Hx Cancer: Yes Cancer History Comment: NEW DX LT KIDNEY 08/2017 - Congenital Disorder History Hx Congenital Disorders: No - GI History Hx Gastrointestinal Disorders: Yes Gastrointestinal History Comment: DIVERTICULOSIS AND CONSTIPATION - Other Health History Other Health History: LT EUSTATCHIAN TUBE PLUGGING RELATED TO ALLERGIES - Chronic Pain History Chronic Pain: No - Surgical History Prior Surgeries: 2018: LEFT NEPHRECTOMY. PARTIAL HYSTERECTOMY. LUMBAR FUSION. LT CARPAL TUNNEL. LT THUMB ARTHROPLASTY. REMVL BONE SPUR RT FOOT. LT WRIST BONE GRAFT ANE Review of Systems Review of Systems: - Exercise capacity METS (RN): 4 METS ANE Patient History - Allergies Allergies/Adverse Reactions: Sulfa (Sulfonamide Antibiotics) Allergy (Verified 11/01/17 07:11) Rash - Home Medications Home Medications: Albuterol [Proventil Inhaler HFA (*)] 1 - 2 puffs IH DAILY PRN 09/26/17 [Last Taken 10/18/17] Aspirin [Aspirin 81mg (*)] 81 mg PO HS 09/26/17 [Last Taken 01/11/18] Benazepril HCl 40 mg PO DAILY 09/26/17 [Last Taken 01/16/18] Calcium Carbonate [Oyster Shell Calcium 500 mg (*)] 500 mg PO DAILY 09/26/17 [ Last Taken 01/10/18] Cholecalciferol Vit D3 [Vitamin D3 (*)] 1,000 units PO DAILY 09/26/17 [Last Taken 01/10/18] Dapagliflozin Propanediol [Farxiga] 10 mg PO DAILY 09/26/17 [Last Taken 01/16/18 ] Estradiol [Estradiol 1 MG (*)] 1 mg PO DAILY 09/26/17 [Last Taken 01/16/18] Fexofenadine HCl [Tameka Allergy] 60 mg PO DAILY 09/26/17 [Last Taken 01/16/18] Hydrochlorothiazide [HCTZ (*)] 12.5 mg PO DAILY 09/26/17 [Last Taken 01/16/18] Insulin Detemir [Levemir] 80 unit SQ BID 09/26/17 [Last Taken 01/17/18 60 units] Nebivolol HCl [Bystolic] 30 mg PO DAILY 09/26/17 [Last Taken 01/17/18] [place]-3 Fatty Acids [Fish Oil 1000 mg (*)] 1,000 mg PO DAILY 09/26/17 [Last Taken 01/10/18] Pravastatin Sodium 40 mg PO HS 09/26/17 [Last Taken 01/16/18] Sodium Cl Nasal [[place] (*)] 1 spray NS DAILY 09/26/17 [Last Taken 01/17/18 ] glipiZIDE [Glucotrol] 10 mg PO BIDMEAL 09/26/17 [Last Taken 01/16/18] metFORMIN HCL [Glucophage 1000 mg] 1,000 mg PO BIDMEAL 09/26/17 [Last Taken 09/28] sitaGLIPtin PHOSPHATE [Januvia 100 MG (*)] 100 mg PO DAILY 09/26/17 [Last Taken 01/16/18] - NPO status NPO Since - Liquids (Date): 01/17/18 NPO Since - Liquids (Time): 07:00 NPO Since - Solids (Date): 01/16/18 NPO Since - Solids (Time): 23:55 - Smoking Hx Smoking Status: Never smoked - Family Anes Hx Family Hx Anesthesia Complications: NA ANE Labs/Vital Signs - Vital Signs Blood Pressure: 136/92 Heart Rate: 61 Respiratory Rate: 16 O2 Sat (%): 94 Height: 157.48 cm Weight: 95.254 kg ANE Physical Exam - Airway Neck exam: decreased ROM, increased neck circumference, short neck Mallampati Score: Class 2 Mouth exam: normal dental/mouth exam - Pulmonary Pulmonary: no respiratory distress, no rales or rhonchi, reduced air movement - Cardiovascular Cardiovascular: regular rate and rhythym, no murmur, rub, or gallop - ASA Status ASA Status: III ANE Anesthesia Plan Anesthesia Plan: general endotracheal anesthesia, epidural Lines/Monitors: additional IV
[2018-01-17] MEDS ORDERED: SUGAMMADEX SODIUM 200 MG/2 ML VIAL IVP ONE (12:43)
[2018-01-17] MEDS ORDERED: ceFAZolin 1 GM VIAL ONE (12:43)
[2018-01-17] MEDS ORDERED: D50W 25 GM/50 ML SYR IVP PRN (13:44)
[2018-01-17] MEDS ORDERED: HYDROmorphONE/DILAUDID 6 MG/30 ML PCA IV PRN (13:47)
[2018-01-17] MEDS ORDERED: ALBUTEROL 60 PUFFS/8 GM MDI IH PRN (13:48)
[2018-01-17] MEDS ORDERED: NS 1,000 ML IV SCH (14:00)
--- NOTE | 2018-01-17 16:33 | POSTANESTH ---
Post Anesthetic Evaluation Cardiovascular Status: Normal, Stable, Similar to Pre-Op Cond Respiratory Status: Normal, Stable, Similar to Pre-op Cond. Level of Consciousness/Mental Status: Mildly Sleepy, Arousable Pain Control: Adequate, Prn Tx Ordered Nausea/Vomiting Control: Adequate, Prn Tx Ordered Complications Possibly Related to Anesthesia: None Noted
[2018-01-17] MEDS: METHOCARBAMOL 750 MG TAB PO SCH ×2 (16:41→21:22)
--- NOTE | 2018-01-17 16:41 | GOP ---
DATE OF OPERATION: 01/17/2018 SURGEON: Nic Winslow MD DOCK GRADER: Praful Van MD ANESTHESIA: General endotracheal. PREOPERATIVE DIAGNOSIS: Large, symptomatic left retroperitoneal hematoma. POSTOPERATIVE DIAGNOSIS: Large, symptomatic left retroperitoneal hematoma. PROCEDURE PERFORMED: Hand-assisted laparoscopic evacuation of retroperitoneal hematoma. FINDINGS: Large, left retroperitoneal hematoma with an extensive amount of old , clotted blood and a fairly thick capsule. SPECIMENS: Evacuated hematoma contents. ESTIMATED BLOOD LOSS: Minimal, less than 25 cc. INDICATIONS: This woman previously underwent left robotic nephrectomy for cancer approximately 2 months ago. Postoperatively, she developed a large, left retroperitoneal hematoma which she has remained symptomatic from. As a result, it was recommended she undergo intraoperative management of this hematoma. The indications for the procedures, as well as potential risks and complications were discussed with the patient preoperatively. She appeared to understand, her questions were answered, and she wished to proceed. Written informed surgical consent was thereafter obtained. DESCRIPTION OF PROCEDURE: The patient was brought to the operating room and administered an epidural anesthetic by Anesthesia. She was then carefully placed in the supine position on the operating room table. She was placed under general endotracheal anesthesia without complication. She was then placed over the break of the table and the table was flexed approximately 20 degrees. A long triangular pad was placed along the patient's back in order to prop her up in the left side up position, approximately 30 degrees. The right leg was flexed at the knee and the left leg was kept straight over it. A Connor catheter had already been placed to gravity drainage without complication by this point. The patient was then thoroughly secured to the table with numerous strips of wide cloth tape from head to toe. The patient's right arm was kept abducted less than 90 degrees on an arm board and the left arm was draped across the midline with multiple pillows placed between the arms. Once the patient had been secured to the table, the table was tilted back and forth in maximum positions to ensure patient stability on the table, and this was confirmed. The abdomen was sterilely prepped and draped in standard fashion utilizing Ioban. The patient was then tilted over in the left flank down position so that the abdomen was relatively flat for port placement purposes. I then made an incision along the previous left paramedian infraumbilical scar. This was made with a scalpel and carried carefully through the anterior abdominal wall with electrocautery. The abdomen was carefully entered. There were some mesenteric and omental adhesions to the anterior abdominal wall around the area of the incision, and these were ligated carefully with cautery. The anterior abdominal wall around the incision was now free. The base of the hand-assisted GelPort was then inserted. The overlying GelPort attachment was then placed. The abdomen was insufflated through a 5 mm port that was placed through the GelPort to an intraabdominal pressure of 15 mmHg. This was the pressure maintained throughout the laparoscopic portion of the surgery. I then placed a 5 mm laparoscopic port in the left lower quadrant laterally, followed by a 10 mm port in the lower aspect of the left upper quadrant in a lateral position as well. There were multiple adhesions between the omentum and the left lateral abdominal wall. These were carefully teased and with gentle blunt dissection and use of monopolar joaquín as necessary. Careful attention was paid to the location of the colon and small bowel at all times. I was able to ultimately break through the fairly thick capsule of the hematoma in the left lower quadrant, and I was able to enter the cavity containing the hematoma at this location. There was a large amount of rubbery-like clotted blood which I was able to remove with my hand through the hand-assisted port. I then used a large-bore 10 mm laparoscopic sucker to evacuate all of the fluid within the muli-loculated hematoma. This fluid had a light red appearance to it. I was able to evacuate practically all the fluid from this cavity,as well as any clotted rubbery old blood. No active bleeding was appreciated during the course of the operation. After I was comfortable with evacuation of the hematoma, I did place a 19 round Maco-Anderson drain through the left lower quadrant 5 mm port. The drain was evacuated into the evacuated hematoma cavity. It should be mentioned that the spleen was identified both visually and by palpation during the course of the operation and left unharmed. It had a pink and viable normal appearance to it visually. I did not manipulate the renal hilum nor the region of the left adrenal gland. These structures appeared to be outside the hematoma capsule. No attempt was made to remove the hematoma capsule. After placing the drain, this completed the laparoscopic portion of the procedure. The instruments and ports were removed. The GelPort and its base were removed. The anterior rectus fascia along the infraumbilical left paramedian incision was reapproximated with running 0 Vicryl suture. All the skin edges were then reapproximated with running 4-0 Monocryl suture in a subcuticular fashion. A 2-0 silk was used for a drain stitch. The drain was connected to bulb suction. The skin incisions were then sealed on the surface with Dermabond. A piece of gauze and tape were placed over the drain site. The patient was then awakened, extubated, transferred to her bed, and taken to the recovery room. She tolerated the procedure well overall. At the conclusion of the procedure, it was deemed that the epidural was no longer going to be necessary postoperatively and it was removed prior to transfer to the recovery room. COMPLICATIONS: None. DISPOSITION: She was transferred to the recovery room in stable condition, and will be admitted for postoperative care. /[id number]/MODL MTDD
[2018-01-17] MEDS: INSULIN REGULAR HUMAN 100 UNIT/ML UNIT SC SCH ×2 (18:48→21:21)
--- NOTE | 2018-01-17 20:58 | PDMN ---
Medical Necessity Medical necessity: Pt meets inpt criteria per MD order and General Surgery GRG, Laproscopic evacuation of retroperitoneal hematoma. Est LOS> 2MN for above surgery and post-op care in pt w/ comorbididites including recent dx malignant neoplasm L kidney w/rad nephrectomy October 2017, Diabetes, HTN, Diverticulitis. IVF, IV Dilaudid BI APPLICATION DEVELOPER for pain, ongoing med nec inpt care.
[2018-01-17] MEDS: PRAVASTATIN SODIUM 40 MG TAB PO SCH (21:21)
[2018-01-18] MEDS: BENAZEPRIL HCL 20 MG TAB PO SCH (08:52)
[2018-01-18] MEDS: METHOCARBAMOL 750 MG TAB PO SCH ×3 (08:52→21:49)
[2018-01-18] MEDS: ESTRADIOL 1 MG TAB PO SCH (08:52)
[2018-01-18] MEDS: HYDROCHLOROTHIAZIDE 12.5 MG CAP PO SCH (08:52)
[2018-01-18] MEDS: CETIRIZINE 10 MG TAB PO SCH (08:53)
[2018-01-18] MEDS: INSULIN REGULAR HUMAN 100 UNIT/ML UNIT SC SCH ×5 (08:54→21:49)
[2018-01-18] MEDS ORDERED: DAPAGLIFLOZIN PROPANEDIOL 10 MG PO SCH (09:00)
[2018-01-18] MEDS ORDERED: NEBIVOLOL HCL PO SCH (09:00)
[2018-01-18] MEDS: SODIUM CL NASAL 45 ML BTL NS SCH (09:30)
[2018-01-18] MEDS: INSULIN GLARGINE 100 UNITS/ML SYRINGE SC SCH ×2 (09:52→21:50)
[2018-01-18] MEDS ORDERED: HYDROmorphONE/DILAUDID 1 MG/ML INJ IVP PRN (13:27)
--- NOTE | 2018-01-18 13:27 | SOAPPROG ---
SOAP Progress Note Assessment/Plan: Assessment: POD 1 s/p KELVIN evacuation of large left retroperitoneal hematoma - stable, but won't be ready for discharge today. Plan: 1. Continue postop mgmt. 2. Stressed the importance of frequent ambulation. 3. Hopeful d/c home tomorrow. Will keep TIFFANY in until then. Subjective: c/o abdominal pain controlled with narcotics. Continues to have upper midline back spasms that started yesterday after surgery, improved with oral Robaxin. Tolerating regular diet well. Objective: Vital Signs Temp Pulse Resp BP Pulse Ox 36.8 C 72 16 102/50 L 92 01/18/18 11:58 01/18/18 11:58 01/18/18 11:58 01/18/18 11:58 01/18/18 11:58 Laboratory Results 01/18/18 05:38 01/18/18 05:38 01/17/18 01/18/18 01/19/18 05:59 05:59 05:59 Intake Total 2820 Output Total 1445 20 Balance 1375 -20 Physical Exam - Physical Exam General Appearance: alert, no apparent distress, obese Abdomen: soft, other (chronically obese, mildly distended, mild diffuse tenderness w/o peritoneal signs, incisions c/d/i) Skin: normal color, warm/dry Extremities: non-tender, normal inspection Neuro/Psych: alert, normal mood/affect, oriented x 3 ICD10 Worksheet Patient Problems: Problems Problem Status Onset Renal neoplasm Acute
--- NOTE | 2018-01-18 15:35 | ASMTCMCOM ---
CM Note CM Note Notes: Pt admitted with retroperitoneal hematoma. Pt will likely DC with no needs. Date Signed: 01/18/2018 03:34 PM Electronically Signed By:Rhona Rothman LCSW
[2018-01-18] MEDS: HYDROCODONE/APAP 10/325 TAB PO PRN (17:58)
[2018-01-18] MEDS: glipiZIDE 10 MG TAB PO SCH (17:58)
[2018-01-18] MEDS: metFORMIN HCL 500 MG TAB PO SCH (18:23)
--- NOTE | 2018-01-18 19:42 | SOAPPROG ---
SOAP Progress Note Assessment/Plan: Assessment: 1. POD 1 s/p KELVIN evacuation of large left retroperitoneal hematoma - overall stable. 2. Probable subcutaneous seroma. Plan: 1. Local dressing changes to draining incision prn. 2. Continue with ambulation. 3. Wound reassessment tomorrow. More than likely the subcutaneous Monocril suture will breakdown & the wound will then probably require packing. 4. Recheck labs in AM. 5. Hopeful d/c home tomorrow. Will keep TIFFANY in until then. Subjective: Called by nursing staff early this evening because of a "large" amount of drainage occurred from the largest incision & began after pt. ambulated in halls for 1st time. Pt. is otherwise feeling fine. Objective: Vital Signs Temp Pulse Resp BP Pulse Ox 37.1 C 83 20 104/54 L 92 01/18/18 14:39 01/18/18 16:25 01/18/18 16:25 01/18/18 16:25 01/18/18 16:25 Laboratory Results 01/18/18 05:38 01/18/18 05:38 01/17/18 01/18/18 01/19/18 05:59 05:59 05:59 Intake Total 2820 1583 Output Total 1445 20 Balance 1375 1563 Physical Exam - Physical Exam General Appearance: alert, no apparent distress, obese Abdomen: soft, other (very lightly serosanguinous drainage can be expressed from lower paramedian incision; incision is currently intact without evidence of cellulitis nor excessive tenderness.) ICD10 Worksheet Patient Problems: Problems Problem Status Onset Renal neoplasm Acute
[2018-01-18] MEDS: PRAVASTATIN SODIUM 40 MG TAB PO SCH (21:49)
[2018-01-19] MEDS: HYDROCODONE/APAP 10/325 TAB PO PRN ×2 (04:37→13:46)
[2018-01-19] MEDS: INSULIN REGULAR HUMAN 100 UNIT/ML UNIT SC SCH ×2 (07:44→12:25)
[2018-01-19] MEDS: glipiZIDE 10 MG TAB PO SCH (08:53)
[2018-01-19] MEDS: METHOCARBAMOL 750 MG TAB PO SCH ×2 (08:53→17:08)
[2018-01-19] MEDS: metFORMIN HCL 500 MG TAB PO SCH (08:53)
[2018-01-19] MEDS: ESTRADIOL 1 MG TAB PO SCH (08:53)
[2018-01-19] MEDS: CETIRIZINE 10 MG TAB PO SCH (08:54)
[2018-01-19] MEDS: HYDROCHLOROTHIAZIDE 12.5 MG CAP PO SCH (08:54)
[2018-01-19] MEDS ORDERED: NEBIVOLOL HCL 5 MG TAB PO SCH (09:00)
[2018-01-19] MEDS ORDERED: DAPAGLIFLOZIN PROPANEDIOL 10 MG PO SCH (09:00)
[2018-01-19] MEDS: BENAZEPRIL HCL 20 MG TAB PO SCH (09:28)
[2018-01-19] MEDS: INSULIN GLARGINE 100 UNITS/ML SYRINGE SC SCH (09:28)
[2018-01-19] MEDS: SODIUM CL NASAL 45 ML BTL NS SCH (09:29)
--- NOTE | 2018-01-19 13:35 | PDIAF ---
- Diagnosis Code Status: Full Code - Medication Management Discharge Medications: Medications to Continue on Transfer Albuterol [Proventil Inhaler HFA (*)] 1 - 2 puffs IH DAILY PRN 09/26/17 [Last Taken 10/18/17] Aspirin [Aspirin 81mg (*)] 81 mg PO HS 09/26/17 [Last Taken 01/11/18] Benazepril HCl 40 mg PO DAILY 09/26/17 [Last Taken 01/16/18] Calcium Carbonate [Oyster Shell Calcium 500 mg (*)] 500 mg PO DAILY 09/26/17 [ Last Taken 01/10/18] Cholecalciferol Vit D3 [Vitamin D3 (*)] 1,000 units PO DAILY 09/26/17 [Last Taken 01/10/18] Dapagliflozin Propanediol [Farxiga] 10 mg PO DAILY 09/26/17 [Last Taken 01/16/18 ] Estradiol [Estradiol 1 MG (*)] 1 mg PO DAILY 09/26/17 [Last Taken 01/16/18] Fexofenadine HCl [Tameka Allergy] 60 mg PO DAILY 09/26/17 [Last Taken 01/16/18] Hydrochlorothiazide [HCTZ (*)] 12.5 mg PO DAILY 09/26/17 [Last Taken 01/16/18] Insulin Detemir [Levemir] 80 unit SQ BID 09/26/17 [Last Taken 01/17/18 60 units] Nebivolol HCl [Bystolic] 30 mg PO DAILY 09/26/17 [Last Taken 01/17/18] [place]-3 Fatty Acids [Fish Oil 1000 mg (*)] 1,000 mg PO DAILY 09/26/17 [Last Taken 01/10/18] Pravastatin Sodium 40 mg PO HS 09/26/17 [Last Taken 01/16/18] Sodium Cl Nasal [[place] (*)] 1 spray NS DAILY 09/26/17 [Last Taken 01/17/18 ] glipiZIDE [Glucotrol] 10 mg PO BIDMEAL 09/26/17 [Last Taken 01/16/18] metFORMIN HCL [Glucophage 1000 mg] 1,000 mg PO BIDMEAL 09/26/17 [Last Taken 09/28] sitaGLIPtin PHOSPHATE [Januvia 100 MG (*)] 100 mg PO DAILY 09/26/17 [Last Taken 01/16/18] HYDROcodone/APAP [[place] [address] (*)] 1 - 2 tab PO Q6 PRN #20 tab 01/18/18 [Last Taken Unknown] Discharge Medications: Refer to the Discharge Home Medication list for PRN reason. - Orders Services needed: Home Care, Registered Nurse Home Care Face to Face: I certify that this patient was under my care and that I had the required [id number] encounter meeting the encounter requirements on the discharge day. My findings support the fact that the patient is homebound as defined in Home Care Face to Face Continued: CMS Chapter 7 Medicare Benefits Manual 30.1.1 , The condition of the patient is such that there exists a normal inability to leave home and consequently, leaving home would require a considerable and taxing effort. Diet Texture: Regular Texture Diet Wound Care Instructions: Pack and change wound daily Additional Instructions: 1. Follow-up with Dr. Winslow in 1 weeks -- call to schedule. - Follow Up Care Current Providers and Referrals: Addis Talbot MD [Primary Care Provider] -
--- NOTE | 2018-01-19 13:39 | SOAPPROG ---
SOAP Progress Note Assessment/Plan: Assessment: Plan: Objective: Vital Signs Temp Pulse Resp BP Pulse Ox 36.8 C 98 18 105/58 L 98 01/19/18 11:44 01/19/18 11:44 01/19/18 11:44 01/19/18 11:44 01/19/18 11:44 Laboratory Results 01/19/18 04:50 01/19/18 04:50 01/18/18 01/19/18 01/20/18 05:59 05:59 05:59 Intake Total 2820 1943 Output Total 1445 40 Balance 1375 1903 - Time Spent With Patient Time Spent With Patient: Pt feeling well, no specific complaint pain is well controll Afeb vss Wound with mild separation about 1 to 2cm no signs of infection Abd soft, approp tender, pos bs A/P Pt to be dc home with wound care She will fu with Dr. Packer this week for wound check ICD10 Worksheet Patient Problems: Problems Problem Status Onset Renal neoplasm Acute
--- NOTE | 2018-01-19 13:47 | PDHOMEO2F ---
Home Oxygen Face to Face Home Orders: I certify that a physician or a nurse practitioner or physician's hospital medical assistant has had a llew-ks-xnab encounter with this patient on the date of this order due to the diagnosis listed, which relates to the primary reason the patient requires home oxygen. Alternative treatments have been tried, or considered, and deemed ineffective. It is anticipated that supplemental oxygen will result in improvement with treatment. Home oxygen qualifying diagnosis: kidney cancer SpO2 on room air (%): 85% Frequency of home oxygen needed: continuous Home oxygen liters per minute: 2 Home oxygen delivery device: nasal cannula Concentrator: Yes E-tanks for mobility and back up: Yes If ordering portable O2, is the patient mobile in the home?: Yes I certify that, based on these findings, the home oxygen is medically necessary for this patient for the following length of time. Length of time home oxygen needed: 1 week (post op desaturation with out oxygen)
--- NOTE | 2018-01-19 17:02 | ASMTLACE ---
LACE Length of stay for Answers: 2 days current admission Acuity / Level of Answers: Yes Care: Did the patient have an inpatient admission? Comorbidities - select Answers: Diabetes (uncontrolled or all that apply controlled) Other Notes: HTN, retroperitoneal hematoma # of Emergency department Answers: 0 visits in the last 6 months Score: 7 Date Signed: 01/19/2018 05:01 PM Electronically Signed By:Marycarmen Blanca RN
[2018-01-19 17:13] VITALS: BP 130/70
--- NOTE | 2018-01-20 08:36 | ASMTDCNOTE ---
Case Management Discharge Discharge Order Complete? Answers: Yes Patient to Obtain Answers: via [employer] Transportation Arranged Answers: Family/Friends Transport will Pick (Date 01/19/2018 12:00 AM & Time) EMTALA Complete Answers: No Notes: N/A Case Management Transport Answers: No Notes: N/A Form Complete Faxed Final Orders Answers: Yes Notes: Sent via Allscripts; confirmed receipt with [facility] Agency/Facility Transfer Answers: Yes Notes: Sent via Report Printed & Faxed to [employer]; confirmed Receiving Agency receipt with [facility] Family Notified Answers: Yes Notes: at bedside Discharge Comments Notes: Late entry - All[employer] down for maintenance Sunday afternoon/evening 01/19/18 Reviewed chart, spoke with LANETTE Tsai, LANETTE Lorenzana and Dr. Horowitz regarding discharge plan of care, pt's progress. Call received from Dr. Horowitz regarding pt's needs. Per Dr. Horowitz, pt to discharge home with wound care assistance. Met with Dr. Horowitz in person to assist MD with discharge orders, oxygen needs, and Transfer of Care Summary. Per Abisai, pt not quite ready for discharge due to decreased blood pressures, decreased oxygen saturation (79-85% on room air) and increased drainage, possible dehiscence of wound. Concerns expressed to Dr. Horowitz; pt to discharge home with home care and supplemental home oxygen. Met with pt and pt's . Discussed home care, pt agreeable. Verified pt's address ([address] [place] [address]) and phone number (pt's cell [phone]). Confirmed homebound requirements. Call placed to [facility] , spoke with Ana Paula. Per Ana Paula, able to accept with start of care for Sunday01/20/18 (RN services); wound care needs discussed. Referral and discharge paperwork sent via [employer]. LANETTE Lorenzana to call report to [phone]. Oxygen arranged by RT. No IM signed, not applicable. Pt to follow up as directed. CM available for any further issues or concerns. Discharge Plan: Home with [facility] home care Date Signed: 01/20/2018 08:36 AM Electronically Signed By:Marycarmen Blanca RN
--- NOTE | 2018-01-20 08:37 | ASDISCHSUM ---
Discharge Information Plan Status:Home with Home Health Medically Cleared to Leave:01/19/2018 Discharge Date:01/19/2018 07:00 PM CM D/C Disposition:[facility] ADT D[facility] Projected Discharge Date:01/19/2018 04:00 PM Transportation at D/C:Family Discharge Delay Reason: Follow-Up Date:01/19/2018 04:00 PM Discharge Slot:2 - 12:01 pm - 18:00 pm Final Diagnosis:Laproscopic evacuation of retroperitoneal hematoma Placement Information Referral Type:*Home Health Care Services Referral ID:[id number] Provider [facility] [address] 2: City:[place] Selection Factors:Patient/Family Choice State:[place] Patient Contact Information Contact Name:JOAQUIN Relationship: Address:[address] Work Phone: City:[place] Alternate Phone: State/Zip Code:[place] [address] Email: Financial Information Financial Class:[employer] Primary Plan Desc:[employer] [facility] Primary Plan Number:[id number] Secondary Plan Desc: Secondary Plan Number: Assessment Information LACE LACE Length of stay for Answers: 2 days current admission Acuity / Level of Answers: Yes Care: Did the patient have an inpatient admission? Comorbidities - select Answers: Diabetes (uncontrolled or all that apply controlled) Other Notes: HTN, retroperitoneal hematoma # of Emergency department Answers: 0 visits in the last 6 months Score: 7 Date Signed: 01/19/2018 05:01 PM Electronically Signed By:Marycarmen Blanca RN [facility] CM Progress Note CM Note CM Note Notes: Pt admitted with retroperitoneal hematoma. Pt will likely DC with no needs. Date Signed: 01/18/2018 03:34 PM Electronically Signed By:Rhona Rothman LCSW Case Management Discharge Plan Note Case Management Discharge Discharge Order Complete? Answers: Yes Patient to Obtain Answers: via Family [employer]ations Transportation Arranged Answers: Family/Friends Transport will Pick (Date 01/19/2018 12:00 AM & Time) EMTALA Complete Answers: No Notes: N/A Case Management Transport Answers: No Notes: N/A Form Complete Faxed Final Orders Answers: Yes Notes: Sent via [employer]; confirmed receipt with [place] Agency/Facility Transfer Answers: Yes Notes: Sent via Report Printed & Faxed to [employer]; confirmed Receiving Agency receipt with [place] Family Notified Answers: Yes Notes: at bedside Discharge Comments Notes: Late entry - [employer] down for maintenance Sunday afternoon/evening 01/19/18 Reviewed chart, spoke with LANETTE Tsai, LANETTE Lorenzana and Dr. Horowitz regarding discharge plan of care, pt's progress. Call received from Dr. Horowitz regarding pt's needs. Per Dr. Horowitz, pt to discharge home with wound care assistance. Met with Dr. Horowitz in person to assist MD with discharge orders, oxygen needs, and Transfer of Care Summary. Per Harriett and Quin, pt not quite ready for discharge due to decreased blood pressures, decreased oxygen saturation (79-85% on room air) and increased drainage, possible dehiscence of wound. Concerns expressed to Dr. Horowitz; pt to discharge home with home care and supplemental home oxygen. Met with pt and pt's . Discussed home care, pt agreeable. Verified pt's address ([address] [place] [address]) and phone number (pt's cell [phone]). Confirmed homebound requirements. Call placed to [facility] , spoke with Ana Paula. Per Ana Paula, able to accept with start of care for Sunday01/20/18 (RN services); wound care needs discussed. Referral and discharge paperwork sent via [employer]. October, RN to call report to [phone]. Oxygen arranged by RT. No IM signed, not applicable. Pt to follow up as directed. CM available for any further issues or concerns. Discharge Plan: Home with [facility] home care Date Signed: 01/20/2018 08:36 AM Electronically Signed By:Marycarmen Blanca RN Intervention Information
== END 2018-01-19 19:00 | disposition home health service (06) | DRG 357 ==
LOC: F3N 09:22 → F1N 11:39
PROVIDERS: ADMIT Specialist; ATTEND Specialist
PROC: 0WCH4ZZ Extirpation of Matter from Retroperitoneum, Percutaneous Endoscopic Approach (ICD-10-PCS; principal; 2018-01-17 10:45)
DX: K66.1 Hemoperitoneum (principal); C64.2 Malignant neoplasm of left kidney, except renal pelvis; Z90.5 Acquired absence of kidney; E11.9 Type 2 diabetes mellitus without complications; I10 Essential (primary) hypertension; J45.998 Other asthma; Z79.4 Long term (current) use of insulin
CPT/HCPCS: J0690; J1170; J1815; J2250; J2405; J2704; J2780; J3010

== ENCOUNTER 2018-04-11 13:10 | Day surgery (SDC) | payer OTHER ==
[2018-04-11] MEDS ORDERED: MIDAZOLAM 2 MG/2 ML VIAL IVP PRN (14:11)
[2018-04-11] MEDS ORDERED: FLUMAZENIL 0.5 MG/5 ML MDV IVP PRN (14:11)
[2018-04-11] MEDS ORDERED: NALOXONE HCL 0.4 MG/ML INJ IVP PRN (14:11)
[2018-04-11] MEDS ORDERED: fentaNYL 100 MCG/2 ML INJ IVP PRN (14:11)
[2018-04-11] MEDS ORDERED: LIDOCAINE 1% 300 MG/30 ML SDV ONE (14:12)
[2018-04-11] MEDS ORDERED: NS 1,000 ML IV SCH (14:15)
[2018-04-11] MEDS ORDERED: NALOXONE HCL 0.4 MG/ML INJ ONE (14:15)
[2018-04-11] MEDS ORDERED: FLUMAZENIL 0.5 MG/5 ML MDV IVP ONE (14:16)
[2018-04-11] MEDS ORDERED: fentaNYL 100 MCG/2 ML INJ ONE (14:16)
[2018-04-11] MEDS ORDERED: MIDAZOLAM 2 MG/2 ML VIAL ONE (14:16)
[2018-04-11] MEDS ORDERED: ONDANSETRON 4 MG/2 ML VIAL IVP PRN (17:56)
[2018-04-11] MEDS ORDERED: ACETAMINOPHEN 325 MG TAB PO PRN (17:56)
--- NOTE | 2018-04-11 17:58 | PDPROPOC ---
Sedation Plan of Care Sedation Plan of Care: vital signs stable, mental status noted, patient educated of risks, benefits, alternatives, patient can tolerate sedation ASA Classification: ASA 2 Planned drugs: fentanyl, midazolam Mallampati Score: Class 2 Mallampati Reference Image: Patient passed 3-3-2 rule?: Yes
--- NOTE | 2018-04-11 18:00 | PDGENHP ---
History & Physical Chief Complaint: LLQ PAIN History of Present Illness: S/P NEPHRECTOMY. FLUID COLLECTION. PERSISTANT LT SIDED PAIN. ? CAUSED BY RESIDUAL FLUID COLLECTION. Pertinent Past, Social, Family History: NON SMOKER Relevant Physical Exam: CT NOTED Cardiorespiratory Assessment: RRR, CTA
--- NOTE | 2018-04-11 18:00 | PDRADPN ---
Radiology Procedure Note Date of Procedure: 04/11/18 Radiologist: Coni Suarez Pre-op Diagnosis: LLQ FLUID COLLECTION Post-op Diagnosis: SAME Indication: ? CAUSING PAIN Procedure: CT GUIDED ASPIRATION Inf/Abcess present in the surg proc area at time of surgery?: No
[2018-04-11 19:09] VITALS: BP 115/73
== END 2018-04-11 19:00 | disposition home or self-care (01) ==
LOC: FIMAGING 13:10
PROVIDERS: ATTEND Radiology Diagnostic Radiology
DX: K65.1 Peritoneal abscess (principal); N28.1 Cyst of kidney, acquired; C64.2 Malignant neoplasm of left kidney, except renal pelvis; Z90.5 Acquired absence of kidney; Z98.1 Arthrodesis status
CPT/HCPCS: J2250; J2310; J3010